=== PATIENT | male | born 1975 | race Caucasian/White ===

== ENCOUNTER → 2022-06-17 | Outpatient (CLI) | payer OTHER ==
[~2022-06-17] MED LIST: ACHD5005 PO; ALPR.25T PO; AMOX-355 PO; LISI5TAB20 PO; MTP25TSR; OFLO5DRO33 EACH EAR; PRD20T PO
--- NOTE | 2022-06-17 16:34 | Diagnostic Imaging Report ---
PROCEDURE: MRI left upper extremity without contrast. TECHNIQUE: Multiplanar, multisequence non contrast-enhanced MRI of the left upper extremity was accomplished. INDICATION: Left elbow pain. COMPARISON: None. FINDINGS: No acute fracture is seen in the left elbow. Alignment is normal. There is no joint effusion. The ulnar collateral ligament is intact. The radial collateral ligamentous complex appears intact. The origins of the common flexor and common extensor tendons appear intact. There is a high-grade partial tear at the insertion of the biceps tendon with a few of the proximal fibers remaining intact. There is surrounding edema and fluid. The brachialis tendon is intact. There is edema in the supinator muscle. The triceps tendon is intact. No focal muscular atrophy is seen. The ulnar nerve is normal in course and signal. IMPRESSION: 1. High-grade partial tear at the insertion of the biceps tendon. 2. Grade 1 strain of the supinator muscle. Dictated by: Dictated on workstation # [id number]
== END ==
LOC: RAD 13:31 → EDBD 13:31
PROVIDERS: ATTEND Nurse Practitioner Family
DX: Z04.2 Encounter for examination and observation following work accident (principal); Z02.89 Encounter for other administrative examinations; S46.212A Strain of muscle, fascia and tendon of other parts of biceps, left arm, initial encounter; S46.812A Strain of other muscles, fascia and tendons at shoulder and upper arm level, left arm, initial encounter; X58.XXXA Exposure to other specified factors, initial encounter; I10 Essential (primary) hypertension
CPT/HCPCS: 73221